=== PATIENT | male | born 1955 | race Caucasian/White ===

== ENCOUNTER 2017-04-28 11:27 | Emergency (ER) | payer OTHER ==
[2017-04-28] MEDS ORDERED: SODIUM CHLORIDE 0.9% 1000ML 1,000 ML IV ONE ×2 (11:43→13:26)
[2017-04-28] MEDS ORDERED: ONDANSETRON HCL 4 MG/2 ML SOL IV ONE ×2 (11:43→12:30)
[2017-04-28] MEDS ORDERED: ONDANSETRON HCL 4 MG/2 ML SOL ONE ×2 (11:49→12:31)
[2017-04-28 12:02] VITALS: TEMP 99.4
[2017-04-28 12:04] LABS: ALBUMIN 4.2 gm/dl (3.4-5.0); ALT 42 IU/L (14-63); CALCIUM 9.1 mg/dl (8.5-10.1); GLOM FILT RATE 94 mL/min (>60); POTASSIUM 4.2 mMol/L (3.5-5.1); SODIUM 136 mMol/L (136-145)
[2017-04-28 12:11] LABS: BASOPHILS % (AUTO) 0 % (0-3); EOSINOPHILS % (AUTO) 0 % (0-9); HEMATOCRIT 43 % (39-53); MEAN CORPUSCULAR HGB CONC 34.6 gm/dl (32.0-36.0); MEAN CORPUSCULAR VOLUME 85 fL (80-100); MONOCYTES % (AUTO) 3.5 % (0-12)
[2017-04-28] MEDS ORDERED: HYDROMORPHONE 1 MG/ML SYRINGE IV ONE ×2 (12:21→12:22)
[2017-04-28] MEDS ORDERED: HYDROMORPHONE 1 MG/ML SYRINGE ONE (12:24)
[2017-04-28 12:27] LABS: APPEARANCE,URINE Clear; BILIRUBIN,URINE NEGATIVE (NEGATIVE); COLOR,URINE Yellow; GLUCOSE, URINE (UA) NEGATIVE (NEGATIVE); KETONES,URINE 1+ (NEGATIVE); LEUKOCYTE ESTERASE ,URINE NEGATIVE (NEGATIVE); NITRATE,URINE NEGATIVE (NEGATIVE); OCCULT BLOOD,URINE 1+ (NEG-TRACE); UROBILINOGEN,URINE 0.2 (0.2-1.0 EU)
[2017-04-28 12:50] LABS: WBC,URINE 0-2 (0-5AV/HPF)
[2017-04-28 14:28] VITALS: PULSE 90; RESP 20
[2017-04-28 14:29] VITALS: BP 142/82; O2SAT 95
== END 2017-04-28 14:44 | disposition home or self-care (01) ==
LOC: ED 11:27
DX: E86.0 Dehydration (principal); R10.33 Periumbilical pain; R11.2 Nausea with vomiting, unspecified; R19.7 Diarrhea, unspecified
CPT/HCPCS: 99285 ×3; 80053; 80307; 81001; 82150; 83605; 83690; 85025; J1170; J2405 ×2; Q9967; 74177

== ENCOUNTER 2018-03-13 19:48 | Emergency (ER) | payer OTHER ==
[2018-03-13 20:26] VITALS: RESP 16; TEMP 98.2; O2SAT 97
[2018-03-13] MEDS ORDERED: METOPROLOL TARTRATE 5 MG/5 ML SOL IV ONE ×2 (20:29→20:53)
[2018-03-13 20:57] LABS: BASOPHILS % (AUTO) 1 % (0-3); EOSINOPHILS % (AUTO) 0 % (0-9); HEMATOCRIT 43 % (39-53); HEMOGLOBIN 14.2 gm/dl (13.5-17.7); LACTIC ACID 1.8 mMol/L (0.0-2.0); MEAN CORPUSCULAR HEMOGLOBIN 29.2 pg (27.0-32.0); MEAN CORPUSCULAR HGB CONC 32.8 gm/dl (32.0-36.0); MEAN CORPUSCULAR VOLUME 89 fL (80-100); MONOCYTES % (AUTO) 6.9 % (0-12)
[2018-03-13] MEDS ORDERED: SODIUM CHLORIDE 0.9% FLUSH 10 ML SOL IV PRN (21:05)
[2018-03-13 21:08] LABS: ALBUMIN 4.2 gm/dl (3.4-5.0); BILIRUBIN,TOTAL 0.7 mg/dl (0.2-1.0); CALCIUM 8.8 mg/dl (8.5-10.1); CARBON DIOXIDE 28.3 mEq/L (21-32); CREATININE 1.05 mg/dl (0.80-1.30); POTASSIUM 3.9 mMol/L (3.5-5.1); TOTAL PROTEIN 8.1 gm/dl (6.4-8.2)
[2018-03-13 21:31] VITALS: PULSE 68
[2018-03-13 21:58] VITALS: BP 134/87
== END 2018-03-13 21:44 | disposition home or self-care (01) | DRG 305 ==
LOC: ED 19:48
DX: I10 Essential (primary) hypertension (principal)
CPT/HCPCS: 80053; 85025; 96374; 99283; 99284; J3490

== ENCOUNTER 2018-03-14 10:30 | Emergency (ER) | payer OTHER ==
[2018-03-14] MEDS ORDERED: SODIUM CHLORIDE 0.9% 1000ML 1,000 ML IV ONE (10:57)
[2018-03-14 11:29] LABS: BASOPHILS % (AUTO) 0 % (0-3); EOSINOPHILS % (AUTO) 0 % (0-9); HEMATOCRIT 46 % (39-53); LYMPHOCYTES % (AUTO) 17.5 % (10-50); MEAN CORPUSCULAR HEMOGLOBIN 28.8 pg (27.0-32.0); MEAN CORPUSCULAR HGB CONC 32.7 gm/dl (32.0-36.0); MEAN CORPUSCULAR VOLUME 88 fL (80-100)
[2018-03-14] MEDS ORDERED: HYDROMORPHONE HCL 2 MG/ML SOL IV ONE (11:32)
[2018-03-14] MEDS ORDERED: ONDANSETRON HCL 4 MG/2 ML SOL IV ONE (11:32)
[2018-03-14] MEDS ORDERED: HYDROMORPHONE 1 MG/ML SYRINGE ONE (11:36)
[2018-03-14] MEDS ORDERED: ONDANSETRON HCL 4 MG/2 ML SOL ONE (11:36)
[2018-03-14 12:32] VITALS: RESP 15; TEMP 98.3
[2018-03-14] MEDS ORDERED: ATROPINE 0.4 MG/ML SOL IV ONE (12:37)
[2018-03-14] MEDS ORDERED: ATROPINE 0.1 MG/ML SOL ONE (12:41)
[2018-03-14 13:26] VITALS: PULSE 78; O2SAT 94
[2018-03-14 13:27] VITALS: BP 179/115
== END 2018-03-14 13:31 | disposition home or self-care (01) | DRG 392 ==
LOC: ED 10:30
DX: K52.9 Noninfective gastroenteritis and colitis, unspecified (principal)
CPT/HCPCS: 74177; 85025; 96365; 96366; 96374; 96375; 99284; 99285; J0461; J2405; Q9967; J1170